=== PATIENT | female | born 1955 | race Caucasian/White ===

== ENCOUNTER 2018-03-13 11:29 | Inpatient (IN) | payer BC ==
--- NOTE | 2018-03-13 11:46 | PDOC ---
Attending Attestation - Resident Resident Name: Laura Bergeron - ED Attending Attestation I have performed the following: I have examined & evaluated the patient, The case was reviewed & discussed with the resident, I agree w/resident's findings & plan, Exceptions are as noted - HPI HPI: 62 yo F history migraines and depression present with 5 days of lower abd pain. She states it is associated with urinary urgency, stress incontinence, discomfort. Denies loss of appetite, fever, diarrhea, vomiting, back pain. She developed sweating on arrival in ED. - Physicial Exam PE: GENERAL: Awake, alert, and fully oriented, in no acute distress HEAD: No signs of trauma EYES: PERRLA, EOMI, sclera anicteric, conjunctiva clear ENT: Auricles normal inspection, hearing grossly normal, nares patent, oropharynx clear without exudates. Moist mucosa NECK: Normal ROM, supple, no lymphadenopathy, JVD, or masses LUNGS: Breath sounds equal, clear to auscultation bilaterally. No wheezes, and no crackles HEART: Regular rate and rhythm, normal S1 and S2, no murmurs, rubs or gallops ABDOMEN: Soft, nontender, normoactive bowel sounds. No guarding, no rebound. No masses. No CVAT. EXTREMITIES: Normal range of motion, no edema. No clubbing or cyanosis. No cords, erythema, or tenderness NEUROLOGICAL: Cranial nerves II through XII grossly intact. Normal speech, normal gait SKIN: Warm, normal turgor, no rashes or lesions noted. +Diaphoresis. - Medical Decision Making Will send UA, as UTI is most likely explanation for her symptoms. No signs of pyelo. If UA negative, may require further workup for abd pain.
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
[2018-03-13 13:23] LABS: URINE APPEARANCE Clear; URINE BILIRUBIN Negative (NEGATIVE); URINE COLOR Amber; URINE GLUCOSE (UA) Negative (NEGATIVE); URINE KETONE Negative (NEGATIVE); URINE LEUK ESTERASE TRACE (NEGATIVE); URINE NITRITE Negative (NEGATIVE); URINE PROTEIN Negative (NEGATIVE); URINE UROBILINOGEN 0.2 (0.2-1.0)
[2018-03-13 13:37] LABS: EPI CELLS FEW /HPF; URINE BACTERIA FEW /hpf (NEGATIVE); URINE RBC 0-2 /hpf (0-3)
[2018-03-13 14:15] LABS: BASO % 0.7 % (0-2.0); HEMATOCRIT 38.8 % (32.4-45.2); HEMOGLOBIN 13.2 GM/dl (10.7-15.3); LYMPH % 16.8 % (8-40); MCH 29.8 pg (25.7-33.7); MEAN CELL VOLUME 87.6 fl (80-96); MEAN PLT VOLUME 9.6 fl (7.5-11.1); MONO % 8.6 % (3.8-10.2); NEUT % 72.9 % (42.8-82.8); PLATELET COUNT 153 K/MM3 (134-434); RBC 4.42 M/mm3 (3.60-5.2); RDW 12.6 % (11.6-15.6); WHITE BLOOD COUNT 6.2 K/mm3 (4.0-10.8)
[2018-03-13 14:24] LABS: ALK PHOS 62 U/L (32-92); ANION GAP 9 (8-16); BILIRUBIN,TOTAL 1.1 mg/dl (0.2-1.0); BLOOD UREA NITROGEN 10 mg/dl (7-18); CALCIUM 8.8 mg/dl (8.4-10.2); CHLORIDE 101 mmol/L (98-107); CO2 27 mmol/L (22-28); CREATININE 0.6 mg/dl (0.6-1.3); GLUCOSE,RANDOM 95 mg/dl (74-106); POTASSIUM 3.5 mmol/L (3.5-5.1); SGOT/AST 17 U/L (10-42); SGPT/ALT 16 U/L (10-40); SODIUM 137 mmol/L (136-145); TOT PROT 6.8 g/dl (6.4-8.3)
[2018-03-13] MEDS ORDERED: ACETAMINOPHEN 1000 MG/100 ML VIAL (NON FORMULARY) IVPB ONE (18:13)
[2018-03-13] MEDS ORDERED: clonazePAM 0.5 MG TABLET PO ONE (18:13)
[2018-03-13] MEDS ORDERED: clonazePAM 0.5 MG TABLET ONE (18:19)
[2018-03-13] MEDS ORDERED: ACETAMINOPHEN INJECTION 100 ML IVPB ONE (18:19)
[2018-03-13 18:56] LABS: ACTIVATED PTT 30.1 SECONDS (25.2-36.5)
[2018-03-13] MEDS: LACTATED RINGERS SOLUTION 1,000 ML/1,000 ML INFUS.BAG IV SCH ×2 (18:58→23:15)
[2018-03-13 19:00] LABS: INR 1.24 (0.82-1.09); PROTHROMBIN TIME (PATIENT) 13.8 SEC (10.2-13.0)
[2018-03-13] MEDS ORDERED: clonazePAM 0.5 MG TABLET PO SCH (22:00)
--- NOTE | 2018-03-13 22:39 | HP ---
Admitting History and Physical - Admission Chief Complaint: RLQ pain History Source: Patient Limitations to Obtaining History: No Limitations - Past Medical History [employer]: Yes: Migraine (basilar) Gastrointestinal: Yes: Other (morbid obesity s/p lap gastric bypass (eliminated HTN, DM)) Reproductive: Yes: Postmenopausal Psych: Yes: Anxiety, Depression, Other (agoraphobia) - Past Surgical History Past Surgical History: Yes: Bariatric Surgery (laparoscopic gastric bypass 2008 [facility]), Cholecystectomy (complicated by ductal injury and second surgery), Hysterectomy, Oopherectomy (bilat) Additional Past Surgical History: left shoulder rotator cuff - Smoking History Smoking history: Never smoked Have you smoked in the past 12 months: No - Alcohol/Substance Use Hx Alcohol Use: No History of Substance Use: reports: None - Social History ADL: Independent Home Medications - Allergies Allergies/Adverse Reactions: Allergies Allergy/AdvReac Type Severity Reaction Status Date / Time prochlorperazine edisylate Allergy Intermediate DIZZINESS Verified 03/13/18 11: 30 [From Compazine] prochlorperazine maleate Allergy Intermediate DIZZINESS Verified 03/13/18 11:30 [From Compazine] amoxicillin Allergy Verified 03/13/18 11:30 DUST Allergy Unknown Uncoded 03/13/18 11:30 HAYFEVER Allergy Unknown Uncoded 03/13/18 11:30 HAZELNUT Allergy Unknown Uncoded 03/13/18 11:30 - Home Medications Home Medications: Ambulatory Orders Clonazepam [Klonopin] 0.5 mg PO HS 05/09/14 Paroxetine HCl [Paxil] 20 mg PO TID 05/09/14 Trazodone HCl 50 mg PO HS 03/13/18 Family Disease History - Family Disease History Family History: Unremarkable (noncontributory) Review of Systems - Review of Systems Constitutional: reports: Loss of Appetite (earlier in week). denies: Chills, Fever Eyes: denies: Recent Change in Vision, Other HENT: denies: Difficult Swallowing, Nasal Congestion, Throat Pain Neck: denies: Swollen Glands, Tenderness Cardiovascular: denies: Chest Pain, Palpitations Respiratory: denies: Cough, SOB Gastrointestinal: reports: Abdominal Pain (with hpi). denies: Constipation, Diarrhea, Nausea, Vomiting Genitourinary: reports: Incontinence, Urgency. denies: Burning, Dysuria, Frequency Musculoskeletal: denies: Back Pain, Joint Pain, Muscle Pain Integumentary: denies: Change in Color, Rash Neurological: reports: Headache. denies: Dizziness, Unsteady Gait Psychiatric: reports: Anxiety, Depression Physical Examination Vital Signs: Vital Signs Temperature 99.0 F 03/13/18 18:34 Pulse Rate 78 03/13/18 18:34 Respiratory Rate 17 03/13/18 11:30 Blood Pressure 130/57 03/13/18 18:34 O2 Sat by Pulse Oximetry (%) 99 03/13/18 18:34 Constitutional: Yes: No Distress, Calm, Obese Eyes: Yes: Conjunctiva Clear, EOM Intact HENT: Yes: Atraumatic, Normocephalic Neck: Yes: Supple, Trachea Midline Cardiovascular: Yes: Regular Rate and Rhythm, Murmur Respiratory: Yes: Regular, CTA Bilaterally Gastrointestinal: Yes: Soft, Abdomen, Obese, Hypoactive Bowel Sounds, Tenderness (RUQ with referred tend from LLQ, focal rebound, no guarding), Tenderness, Rebound (local RLQ only), Other (multiple healed scars - laparoscopic and RUQ). No: Tenderness, Epigastrium ...Rectal Exam: Yes: Deferred Renal/: No: CVA Tenderness - Left, CVA Tenderness - Right Musculoskeletal: No: Joint Stiffness, Joint Swelling Extremities: No: Cool, Cyanosis Edema: No Peripheral Pulses WNL: Yes Integumentary: No: Jaundice, Rash Neurological: Yes: Alert, Oriented Psychiatric: Yes: Alert (mildly anxious), Oriented Labs: CBC, BMP 03/13/18 14:02 03/13/18 14:02 INR, PTT INR 1.24 (0.82-1.09) H 03/13/18 17:46 Urine Test Results Urine Color Rhina 03/13/18 12:21 Urine Appearance Clear 03/13/18 12:21 Urine pH 6.0 (4.5-8) 03/13/18 12:21 Ur Specific [place] <= 1.005 (1.005-1.025) 03/13/18 12:21 Urine Protein Negative (NEGATIVE) 03/13/18 12:21 Urine Glucose (UA) Negative (NEGATIVE) 03/13/18 12:21 Urine Ketones Negative (NEGATIVE) 03/13/18 12:21 Urine Blood Negative (NEGATIVE) 08/04/18 12:21 Urine Nitrite Negative (NEGATIVE) 03/13/18 12:21 Urine Bilirubin Negative (NEGATIVE) 03/13/18 12:21 Ur Leukocyte Esterase Trace (NEGATIVE) H 03/13/18 12:21 Urine RBC 0-2 /hpf (0-3) 03/13/18 12:21 Urine WBC 1-3 (0-5) 03/13/18 12:21 Ur Epithelial Cells Few /HPF 03/13/18 12:21 Urine Bacteria Few /hpf (NEGATIVE) 03/13/18 12:21 Imaging - Results Cat Scan: Report Reviewed, Image Reviewed (images personally reviewed - ruptured appendicitis with local phlegmon, no organized abscess, no extraluminal air, no obstruction; s/p gastric bypass, s/p cholecystectomy and hyst/BSO) Problem List - Problems (1) Ruptured appendicitis Assessment/Plan: 5 day hx of symptoms prior to ER presentation admit to surgery will pursue nonop tx/bowel rest/antibiotics initially NPO/IVF consult ID for abx - Meropenem tonight pain meds prn, nonnarcotics first line encourage OOB/amb/IS DVT prophylaxis trend labs serial exams consider repeat CT pending clinical course to eval for drainable collection in few days discussed with patient risk of failure of nonoperative treatment and potential need for laparoscopic possible open appendectomy given previous surgical history and morbid obesity s/p bypass, would like to avoid immediate operation if possible she may decide to return to bariatric center for interval appendectomy if this episode resolves without emergent surgery ok for home meds only Code(s): K35.2 - ACUTE APPENDICITIS WITH GENERALIZED PERITONITIS (2) Morbid obesity with BMI of 40.0-44.9, adult Code(s): E66.01 - MORBID (SEVERE) OBESITY DUE TO EXCESS CALORIES; Z68.41 - BODY MASS INDEX (BMI) 40.0-44.9, ADULT (3) S/P gastric bypass Code(s): Z98.84 - BARIATRIC SURGERY STATUS (4) Basilar migraine Code(s): G43.109 - MIGRAINE WITH AURA, NOT INTRACTABLE, W/O STATUS MIGRAINOSUS (5) Anxiety and depression Assessment/Plan: continue home meds Code(s): F41.9 - ANXIETY DISORDER, UNSPECIFIED; F32.9 - MAJOR DEPRESSIVE DISORDER, SINGLE EPISODE, UNSPECIFIED
[2018-03-13] MEDS ORDERED: clonazePAM 0.5 MG TABLET PO PRN (22:45)
[2018-03-13] MEDS: clonazePAM 0.5 MG TABLET PO SCH (23:16)
[2018-03-13] MEDS: PARoxetine HCL 10 MG TABLET (FP) PO SCH (23:17)
[2018-03-13] MEDS: traZODone HCL 50 MG TABLET (FP) PO SCH (23:17)
[2018-03-14 00:03] VITALS: BMI 40.4
[2018-03-14] MEDS: MEROPENEM 1 GM in DEXTROSE 5%-WATER 100 ML IVPB SCH ×2 (01:56→09:33)
[2018-03-14] MEDS: ACETAMINOPHEN 1000 MG/100 ML VIAL (NON FORMULARY) IVPB PRN ×2 (04:16→15:17)
[2018-03-14] MEDS: PARoxetine HCL 10 MG TABLET (FP) PO SCH ×4 (05:31→18:35)
[2018-03-14 07:55] LABS: BASO % 0.5 % (0-2.0); EOS % 1.5 % (0-4.5); HEMATOCRIT 34.8 % (32.4-45.2); HEMOGLOBIN 11.7 GM/dL (10.7-15.3); LYMPH % 15.5 % (8-40); MCH 29.3 pg (25.7-33.7); MCHC 33.8 g/dl (32.0-36.0); MEAN CELL VOLUME 86.9 fl (80-96); MEAN PLT VOLUME 9.7 fl (7.5-11.1); MONO % 9.3 % (3.8-10.2); NEUT % 73.2 % (42.8-82.8); PLATELET COUNT 113 K/MM3 (134-434); RDW 13.3 % (11.6-15.6)
[2018-03-14 08:33] LABS: ANION GAP 9 (8-16); BLOOD UREA NITROGEN 6 mg/dL (7-18); CALCIUM 8.4 mg/dL (8.5-10.1); CHLORIDE 107 mmol/L (98-107); CO2 27 mmol/L (21-32); GLUCOSE,RANDOM 87 mg/dL (74-106); MAGNESIUM 2.1 mg/dL (1.8-2.4); POTASSIUM 3.6 mmol/L (3.5-5.1); SODIUM 143 mmol/L (136-145)
[2018-03-14 08:34] LABS: CREATININE 0.5 mg/dL (0.55-1.02)
--- NOTE | 2018-03-14 08:54 | EKG ---
Test Reason : Blood Pressure : / mmHG Vent. Rate : 063 BPM Atrial Rate : 063 BPM P-R Int : 178 ms QRS Dur : 096 ms QT Int : 410 ms P-R-T Axes : 045 -10 006 degrees QTc Int : 419 ms NORMAL SINUS RHYTHM POSSIBLE LEFT ATRIAL ENLARGEMENT BORDERLINE ECG NO PREVIOUS ECGS AVAILABLE Confirmed by YASSINE ZAVALA, REJI ([id number]) on 03/14/2018 8:54:25 AM Referred By: BAY MCINTOSH Confirmed By:REJI METZGER MD
[2018-03-14] MEDS: ENOXAPARIN NA (PORCINE) 40 MG/0.4 ML DISP.SYRIN SQ SCH (09:33)
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
[2018-03-14] MEDS: IBUPROFEN 800 MG/8 ML IJ IVPB PRN (12:07)
[2018-03-14] MEDS: D5-1/2NS+20 MEQ KCL - 20 MEQ/1,000 ML INFUS.BAG IV SCH (13:22)
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
[2018-03-15] MEDS: clonazePAM 0.5 MG TABLET PO SCH ×2 (00:02→23:15)
[2018-03-15] MEDS: traZODone HCL 50 MG TABLET (FP) PO SCH ×2 (00:02→23:15)
[2018-03-15] MEDS: D5-1/2NS+20 MEQ KCL - 20 MEQ/1,000 ML INFUS.BAG IV SCH ×2 (00:19→12:36)
[2018-03-15 07:34] LABS: BASO % 0.7 % (0-2.0); EOS % 3.3 % (0-4.5); HEMOGLOBIN 11.1 GM/dL (10.7-15.3); LYMPH % 19.8 % (8-40); MCH 29.2 pg (25.7-33.7); MCHC 33.7 g/dl (32.0-36.0); MEAN CELL VOLUME 86.7 fl (80-96); MEAN PLT VOLUME 9.8 fl (7.5-11.1); MONO % 11.3 % (3.8-10.2); NEUT % 64.9 % (42.8-82.8); PLATELET COUNT 101 K/MM3 (134-434); RDW 12.9 % (11.6-15.6); WHITE BLOOD COUNT 2.8 K/mm3 (4.0-10.0)
[2018-03-15 08:23] LABS: ANION GAP 6 (8-16); BLOOD UREA NITROGEN 6 mg/dL (7-18); CALCIUM 8.1 mg/dL (8.5-10.1); CHLORIDE 110 mmol/L (98-107); CO2 29 mmol/L (21-32); CREATININE 0.5 mg/dL (0.55-1.02); GLUCOSE,RANDOM 102 mg/dL (74-106); MAGNESIUM 2.1 mg/dL (1.8-2.4); POTASSIUM 3.8 mmol/L (3.5-5.1); SODIUM 145 mmol/L (136-145)
[2018-03-15] MEDS: PARoxetine HCL 10 MG TABLET (FP) PO SCH ×3 (09:13→17:08)
[2018-03-15] MEDS: ENOXAPARIN NA (PORCINE) 40 MG/0.4 ML DISP.SYRIN SQ SCH (09:13)
--- NOTE | 2018-03-15 11:36 | PN ---
Progress Note, Physician Chief Complaint: RLQ pain History of Present Illness: Pt seen and examined in bed. Ambulating in halls. RLQ pain continues to decrease , not using pain meds. Voiding very well. Passing gas, no BM yet. No fevers. Overall feeling better. Changed rooms - had good night's sleep. - Current Medication List Current Medications: Active Medications Acetaminophen (Ofirmev Injection -) 1,000 mg IVPB Q6H PRN PRN Reason: PAIN LEVEL 4 - 6 Last Admin: 03/14/18 15:17 Dose: 1,000 mg Clonazepam (Klonopin -) 0.25 mg PO DAILY PRN PRN Reason: ANXIETY Clonazepam (Klonopin -) 0.5 mg PO [facility] Last Admin: 03/15/18 00:02 Dose: 0.5 mg Enoxaparin Sodium (Lovenox -) 40 mg SQ DAILY [facility] Last Admin: 03/15/18 09:13 Dose: 40 mg Levofloxacin (Levaquin 750 Mg Premixed Ivpb -) 750 mg in 150 mls @ 100 mls/hr IVPB DAILY@1800 [facility]; Protocol Last Admin: 03/14/18 18:17 Dose: 100 mls/hr Potassium Chloride/Dextrose/Sod Cl (D5-1/2ns+20 Meq Kcl -) 20 meq in 1,000 mls @ 125 mls/hr IV ASDIR [facility] Last Admin: 03/15/18 00:19 Dose: 125 mls/hr Metronidazole (Flagyl 500mg Premixed Ivpb -) 500 mg in 100 mls @ 100 mls/hr IVPB Q8H-IV [facility] Last Admin: 03/15/18 09:13 Dose: 100 mls/hr Ibuprofen (Caldolor Injection -) 800 mg IVPB Q8H PRN PRN Reason: PAIN LEVEL 7 - 10 Last Admin: 03/14/18 12:07 Dose: 800 mg Paroxetine HCl (Paxil -) 20 mg PO TID@0900,1300,1700 [facility] Last Admin: 03/15/18 09:13 Dose: 20 mg Trazodone HCl (Desyrel -) 50 mg PO [facility] Last Admin: 03/15/18 00:02 Dose: 50 mg - Objective Vital Signs: Vital Signs Temperature 98.6 F 03/15/18 04:00 Pulse Rate 69 03/15/18 04:00 Respiratory Rate 20 08/06/18 04:00 Blood Pressure 115/62 03/15/18 04:00 O2 Sat by Pulse Oximetry (%) 96 03/14/18 21:00 Constitutional: Yes: No Distress, Calm, Obese Eyes: Yes: Conjunctiva Clear, EOM Intact HENT: Yes: Atraumatic, Normocephalic Cardiovascular: Yes: Regular Rate and Rhythm, Murmur Respiratory: Yes: Regular, CTA Bilaterally Gastrointestinal: Yes: Normal Bowel Sounds, Soft, Abdomen, Obese, Tenderness ( only RLQ to deep palpation, no R/G, no referred tenderness). No: Tenderness, Rebound Extremities: No: Cool, Cyanosis Edema: No Integumentary: No: Jaundice, Rash Neurological: Yes: Alert, Oriented Labs: CBC, BMP 03/15/18 06:00 03/15/18 06:00 wbc low, but clinically improved not yet 48 hrs on antibiotics (will be tonight) Problem List - Problems (1) Ruptured appendicitis Assessment/Plan: pain and tenderness improving on antibiotics continue Levo/Flagyl per ID continue NPO/IVF - decrease fluids a little pain meds prn (tyl/ibu) encourage OOB/amb/IS trend labs, monitor wbc serial exams will continue nonoperative treatment Code(s): K35.2 - ACUTE APPENDICITIS WITH GENERALIZED PERITONITIS (2) Morbid obesity with BMI of 40.0-44.9, adult Code(s): E66.01 - MORBID (SEVERE) OBESITY DUE TO EXCESS CALORIES; Z68.41 - BODY MASS INDEX (BMI) 40.0-44.9, ADULT (3) S/P gastric bypass Code(s): Z98.84 - BARIATRIC SURGERY STATUS (4) Basilar migraine Code(s): G43.109 - MIGRAINE WITH AURA, NOT INTRACTABLE, W/O STATUS MIGRAINOSUS (5) Anxiety and depression Assessment/Plan: continue home meds Code(s): F41.9 - ANXIETY DISORDER, UNSPECIFIED; F32.9 - MAJOR DEPRESSIVE DISORDER, SINGLE EPISODE, UNSPECIFIED
--- NOTE | 2018-03-15 12:30 | PN ---
Progress Note, Physician History of Present Illness: patient stable doing well no complaints passing flatus - Current Medication List Current Medications: Active Medications Acetaminophen (Ofirmev Injection -) 1,000 mg IVPB Q6H PRN PRN Reason: PAIN LEVEL 4 - 6 Last Admin: 03/14/18 15:17 Dose: 1,000 mg Clonazepam (Klonopin -) 0.25 mg PO DAILY PRN PRN Reason: ANXIETY Clonazepam (Klonopin -) 0.5 mg PO [facility] Last Admin: 03/15/18 00:02 Dose: 0.5 mg Enoxaparin Sodium (Lovenox -) 40 mg SQ DAILY [facility] Last Admin: 03/15/18 09:13 Dose: 40 mg Levofloxacin (Levaquin 750 Mg Premixed Ivpb -) 750 mg in 150 mls @ 100 mls/hr IVPB DAILY@1800 [facility]; Protocol Last Admin: 03/14/18 18:17 Dose: 100 mls/hr Metronidazole (Flagyl 500mg Premixed Ivpb -) 500 mg in 100 mls @ 100 mls/hr IVPB Q8H-IV [facility] Last Admin: 03/15/18 09:13 Dose: 100 mls/hr Potassium Chloride/Dextrose/Sod Cl (D5-1/2ns+20 Meq Kcl -) 20 meq in 1,000 mls @ 100 mls/hr IV ASDIR [facility] Ibuprofen (Caldolor Injection -) 800 mg IVPB Q8H PRN PRN Reason: PAIN LEVEL 7 - 10 Last Admin: 03/14/18 12:07 Dose: 800 mg Paroxetine HCl (Paxil -) 20 mg PO TID@0900,1300,1700 [facility] Last Admin: 03/15/18 09:13 Dose: 20 mg Trazodone HCl (Desyrel -) 50 mg PO [facility] Last Admin: 03/15/18 00:02 Dose: 50 mg - Objective Vital Signs: Vital Signs Temperature 98.6 F 03/15/18 04:00 Pulse Rate 69 03/15/18 04:00 Respiratory Rate 20 03/15/18 04:00 Blood Pressure 115/62 03/15/18 04:00 O2 Sat by Pulse Oximetry (%) 96 03/14/18 21:00 Constitutional: Yes: No Distress, Calm, Obese Cardiovascular: Yes: Regular Rate and Rhythm Respiratory: Yes: Regular, CTA Bilaterally Gastrointestinal: Yes: Soft, Hypoactive Bowel Sounds Musculoskeletal: Yes: WNL Extremities: Yes: WNL Neurological: Yes: Alert, Oriented Psychiatric: Yes: Alert, Oriented Labs: CBC, BMP 03/15/18 06:00 03/15/18 06:00 INR, PTT INR 1.24 (0.82-1.09) H 03/13/18 17:46 - ....Imaging Cat Scan: Report Reviewed, Image Reviewed Assessment/Plan Problem List - Problems (1) Ruptured appendicitis Code(s): K35.2 - ACUTE APPENDICITIS WITH GENERALIZED PERITONITIS (2) Morbid obesity with BMI of 40.0-44.9, adult Code(s): E66.01 - MORBID (SEVERE) OBESITY DUE TO EXCESS CALORIES; Z68.41 - BODY MASS INDEX (BMI) 40.0-44.9, ADULT (3) S/P gastric bypass Code(s): Z98.84 - BARIATRIC SURGERY STATUS (4) Basilar migraine Code(s): G43.109 - MIGRAINE WITH AURA, NOT INTRACTABLE, W/O STATUS MIGRAINOSUS (5) Anxiety and depression Assessment/Plan: continue home meds Code(s): F41.9 - ANXIETY DISORDER, UNSPECIFIED; F32.9 - MAJOR DEPRESSIVE DISORDER, SINGLE EPISODE, UNSPECIFIED Assessment/Plan 61 y.o. female with PMH of obesity s/p gastric bypass, s/p cholecystecomy, s/p hysterectomy, migraine headaches, depression and recent tooth extraction presenting with Rt lower abdominal pain x 5 days Acute Appendicitis/rupture will continue current mgmt patient doing well remaining stable wbc on the lower side monitor wbc
[2018-03-15] MEDS ORDERED: diphenhydrAMINE HCL 25 MG CAPSULE (FP) PO ONE (19:00)
[2018-03-16] MEDS: D5-1/2NS+20 MEQ KCL - 20 MEQ/1,000 ML INFUS.BAG IV SCH (05:15)
[2018-03-16 08:03] LABS: BASO % 0.9 % (0-2.0); EOS % 4.1 % (0-4.5); HEMATOCRIT 35.1 % (32.4-45.2); HEMOGLOBIN 11.8 GM/dL (10.7-15.3); LYMPH % 26.1 % (8-40); MCH 29.3 pg (25.7-33.7); MCHC 33.5 g/dl (32.0-36.0); MEAN CELL VOLUME 87.6 fl (80-96); MEAN PLT VOLUME 9.8 fl (7.5-11.1); MONO % 9.8 % (3.8-10.2); NEUT % 59.1 % (42.8-82.8); PLATELET COUNT 116 K/MM3 (134-434); RBC 4.01 M/mm3 (3.60-5.2); RDW 13.1 % (11.6-15.6); WHITE BLOOD COUNT 2.9 K/mm3 (4.0-10.0)
[2018-03-16 08:15] LABS: CHLORIDE 110 mmol/L (98-107); POTASSIUM 3.9 mmol/L (3.5-5.1); SODIUM 146 mmol/L (136-145)
[2018-03-16 08:19] LABS: ANION GAP 9 (8-16); BLOOD UREA NITROGEN 5 mg/dL (7-18); CALCIUM 8.1 mg/dL (8.5-10.1); CO2 27 mmol/L (21-32); CREATININE 0.5 mg/dL (0.55-1.02); GLUCOSE,RANDOM 96 mg/dL (74-106); MAGNESIUM 2.2 mg/dL (1.8-2.4)
[2018-03-16] MEDS: PARoxetine HCL 10 MG TABLET (FP) PO SCH ×4 (10:11→17:30)
[2018-03-16] MEDS: ENOXAPARIN NA (PORCINE) 40 MG/0.4 ML DISP.SYRIN SQ SCH (10:11)
--- NOTE | 2018-03-16 12:44 | PN ---
Progress Note, Physician Chief Complaint: RLQ pain History of Present Illness: Pt seen and examined in bed. Ambulating in halls. No more RLQ pain, no headaches. Voiding and passing gas, had small liquidy BM. No fevers. Overall still feeling better, but also feeling somewhat more depressed, sad, occasionally panicky. Concerned about getting her Paxil at correct times. Last night's events noted - pt had hard, reddened area on right arm just above antecubital fossa and noted a couple of canker sores in her mouth. The right antecubital is where the ER IV was located originally; the redness and firmness is resolving somewhat. Had been itchy as well. Got benadryl last night. - Current Medication List Current Medications: Active Medications Acetaminophen (Ofirmev Injection -) 1,000 mg IVPB Q6H PRN PRN Reason: PAIN LEVEL 4 - 6 Last Admin: 03/14/18 15:17 Dose: 1,000 mg Clonazepam (Klonopin -) 0.25 mg PO DAILY PRN PRN Reason: ANXIETY Clonazepam (Klonopin -) 0.5 mg PO HS [facility] Last Admin: 03/15/18 23:15 Dose: 0.5 mg Enoxaparin Sodium (Lovenox -) 40 mg SQ DAILY [facility] Last Admin: 03/16/18 10:11 Dose: 40 mg Levofloxacin (Levaquin 750 Mg Premixed Ivpb -) 750 mg in 150 mls @ 100 mls/hr IVPB DAILY@1800 [facility]; Protocol Last Admin: 03/15/18 18:45 Dose: 100 mls/hr Metronidazole (Flagyl 500mg Premixed Ivpb -) 500 mg in 100 mls @ 100 mls/hr IVPB Q8H-IV [facility] Last Admin: 03/16/18 10:12 Dose: 100 mls/hr Potassium Chloride/Dextrose/Sod Cl (D5-1/2ns+20 Meq Kcl -) 20 meq in 1,000 mls @ 100 mls/hr IV [facility] Last Admin: 03/16/18 05:15 Dose: 100 mls/hr Ibuprofen (Caldolor Injection -) 800 mg IVPB Q8H PRN PRN Reason: PAIN LEVEL 7 - 10 Last Admin: 03/14/18 12:07 Dose: 800 mg Paroxetine HCl (Paxil -) 20 mg PO TID@0900,1300,1700 [facility] Last Admin: 03/16/18 10:11 Dose: 20 mg Trazodone HCl (Desyrel -) 50 mg PO HS [facility] Last Admin: 03/15/18 23:15 Dose: 50 mg - Objective Vital Signs: Vital Signs Temperature 98.1 F 03/16/18 10:00 Pulse Rate 63 03/16/18 10:00 Respiratory Rate 18 03/16/18 10:00 Blood Pressure 96/65 03/16/18 10:00 O2 Sat by Pulse Oximetry (%) 95 03/15/18 21:00 Constitutional: Yes: No Distress, Calm, Obese Eyes: Yes: Conjunctiva Clear, EOM Intact HENT: Yes: Atraumatic, Normocephalic Cardiovascular: Yes: Regular Rate and Rhythm, Murmur Respiratory: Yes: Regular, CTA Bilaterally Gastrointestinal: Yes: Normal Bowel Sounds (normal to slightly decreased), Soft , Abdomen, Obese. No: Tenderness (minimal RLQ tenderness to deep palpation only ), Tenderness, Epigastrium, Tenderness, Rebound Genitourinary: No: CVA Tenderness - Left, CVA Tenderness - Right Musculoskeletal: No: Joint Stiffness, Joint Swelling Extremities: Yes: Erythema (small pink area above R antecub, minimally firm, mostly soft, not swollen now; antecubital fossa with reddened area medially, possibly from adhesive over previous IV site; neither site tender), Other ( scattered ecchymoses on arms from IV sticks). No: Cool, Cyanosis Edema: No Integumentary: Yes: Bruising (few on arms), Erythema (see above). No: Jaundice , Rash Neurological: Yes: Alert, Oriented Psychiatric: Yes: Alert, Oriented, Other (somewhat flat affect but appropriately responsive). No: Agitated, Suicidal Ideation Labs: CBC, BMP 03/16/18 06:00 03/16/18 06:00 Mg normal wbc stable, up from 2.8 K ok at 3.9 Problem List - Problems (1) Ruptured appendicitis Assessment/Plan: pain and tenderness improving on antibiotics, both nearly resolved continue Levo/Flagyl per ID - anticipate transition to oral on d/c to complete 14d course pain meds prn (tyl/ibu) encourage OOB/amb/IS trend labs, monitor wbc serial exams will continue nonoperative treatment start clear liquids Code(s): K35.2 - ACUTE APPENDICITIS WITH GENERALIZED PERITONITIS (2) Morbid obesity with BMI of 40.0-44.9, adult Code(s): E66.01 - MORBID (SEVERE) OBESITY DUE TO EXCESS CALORIES; Z68.41 - BODY MASS INDEX (BMI) 40.0-44.9, ADULT (3) S/P gastric bypass Code(s): Z98.84 - BARIATRIC SURGERY STATUS (4) Basilar migraine Code(s): G43.109 - MIGRAINE WITH AURA, NOT INTRACTABLE, W/O STATUS MIGRAINOSUS (5) Anxiety and depression Assessment/Plan: continue home meds discussed with nursing to try to give on time for Code(s): F41.9 - ANXIETY DISORDER, UNSPECIFIED; F32.9 - MAJOR DEPRESSIVE DISORDER, SINGLE EPISODE, UNSPECIFIED (6) Recurrent canker sores Assessment/Plan: pt states she has used Valtrex at home previously for same will order 500mg bid Code(s): K12.0 - RECURRENT ORAL APHTHAE (7) Phlebitis following infusion Assessment/Plan: most likely mild phlebitis and/or infiltration at previous IV site already resolving warm compresses prn monitor site Code(s): T80.1XXA - VASCULAR COMP FOL INFUSN, TRANFS AND THERAPUTC INJECT, INIT Qualifiers: Encounter type: initial encounter Qualified Code(s): T80.1XXA - Vascular complications following infusion, transfusion and therapeutic injection, initial encounter
[2018-03-16] MEDS ORDERED: D5-1/2NS+20 MEQ KCL - 20 MEQ/1,000 ML INFUS.BAG IV SCH (12:56)
--- NOTE | 2018-03-16 14:13 | PN ---
Progress Note, Physician History of Present Illness: patient stable doing well no complaints passing flatus - Current Medication List Current Medications: Active Medications Acetaminophen (Ofirmev Injection -) 1,000 mg IVPB Q6H PRN PRN Reason: PAIN LEVEL 4 - 6 Last Admin: 03/14/18 15:17 Dose: 1,000 mg Clonazepam (Klonopin -) 0.25 mg PO DAILY PRN PRN Reason: ANXIETY Clonazepam (Klonopin -) 0.5 mg PO [facility] Last Admin: 03/15/18 23:15 Dose: 0.5 mg Enoxaparin Sodium (Lovenox -) 40 mg SQ DAILY [facility] Last Admin: 03/16/18 10:11 Dose: 40 mg Levofloxacin (Levaquin 750 Mg Premixed Ivpb -) 750 mg in 150 mls @ 100 mls/hr IVPB DAILY@1800 [facility]; Protocol Last Admin: 03/15/18 18:45 Dose: 100 mls/hr Metronidazole (Flagyl 500mg Premixed Ivpb -) 500 mg in 100 mls @ 100 mls/hr IVPB Q8H-IV [facility] Last Admin: 03/16/18 10:12 Dose: 100 mls/hr Potassium Chloride/Dextrose/Sod Cl (D5-1/2ns+20 Meq Kcl -) 20 meq in 1,000 mls @ 75 mls/hr IV ASDIR [facility] Ibuprofen (Caldolor Injection -) 800 mg IVPB Q8H PRN PRN Reason: PAIN LEVEL 7 - 10 Last Admin: 03/14/18 12:07 Dose: 800 mg Paroxetine HCl (Paxil -) 20 mg PO TID@0900,1300,1700 [facility] Trazodone HCl (Desyrel -) 50 mg PO [facility] Last Admin: 03/15/18 23:15 Dose: 50 mg Valacyclovir HCl (Valtrex -) 500 mg PO BID [facility] - Objective Vital Signs: Vital Signs Temperature 98.6 F 03/16/18 13:57 Pulse Rate 68 03/16/18 13:57 Respiratory Rate 18 03/16/18 13:57 Blood Pressure 113/65 03/16/18 13:57 O2 Sat by Pulse Oximetry (%) 96 03/16/18 09:00 Constitutional: Yes: No Distress, Calm, Obese Cardiovascular: Yes: Regular Rate and Rhythm Respiratory: Yes: Regular, CTA Bilaterally Gastrointestinal: Yes: Normal Bowel Sounds, Soft Musculoskeletal: Yes: WNL Extremities: Yes: WNL Neurological: Yes: Alert, Oriented Psychiatric: Yes: Alert, Oriented Labs: CBC, BMP 03/16/18 06:00 03/16/18 06:00 INR, PTT INR 1.24 (0.82-1.09) H 03/13/18 17:46 Assessment/Plan Problem List - Problems (1) Ruptured appendicitis Code(s): K35.2 - ACUTE APPENDICITIS WITH GENERALIZED PERITONITIS (2) Morbid obesity with BMI of 40.0-44.9, adult Code(s): E66.01 - MORBID (SEVERE) OBESITY DUE TO EXCESS CALORIES; Z68.41 - BODY MASS INDEX (BMI) 40.0-44.9, ADULT (3) S/P gastric bypass Code(s): Z98.84 - BARIATRIC SURGERY STATUS (4) Basilar migraine Code(s): G43.109 - MIGRAINE WITH AURA, NOT INTRACTABLE, W/O STATUS MIGRAINOSUS (5) Anxiety and depression Assessment/Plan: continue home meds Code(s): F41.9 - ANXIETY DISORDER, UNSPECIFIED; F32.9 - MAJOR DEPRESSIVE DISORDER, SINGLE EPISODE, UNSPECIFIED Assessment/Plan 61 y.o. female with PMH of obesity s/p gastric bypass, s/p cholecystecomy, s/p hysterectomy, migraine headaches, depression and recent tooth extraction presenting with Rt lower abdominal pain x 5 days Acute Appendicitis/rupture will continue current mgmt patient doing well remaining stable wbc on the lower side monitor wbc
[2018-03-16] MEDS: valACYclovir HCL 500 MG TABLET (FP) PO SCH ×2 (14:31→22:47)
[2018-03-16] MEDS: NYSTATIN 500,000 UNITS/5 ML SUSPENSION PO SCH ×3 (17:30→23:08)
[2018-03-16] MEDS: LACTOBACILLUS ACIDOPHILUS 1 TABLET PO SCH (17:31)
[2018-03-16] MEDS: traZODone HCL 50 MG TABLET (FP) PO SCH (22:46)
[2018-03-16] MEDS: clonazePAM 0.5 MG TABLET PO SCH (22:47)
[2018-03-17] MEDS: IBUPROFEN 800 MG/8 ML IJ IVPB PRN (02:53)
[2018-03-17] MEDS: D5-1/2NS+20 MEQ KCL - 20 MEQ/1,000 ML INFUS.BAG IV SCH (05:00)
[2018-03-17] MEDS: NYSTATIN 500,000 UNITS/5 ML SUSPENSION PO SCH ×3 (05:24→18:03)
[2018-03-17 07:27] LABS: BASO % 1.1 % (0-2.0); HEMATOCRIT 35.9 % (32.4-45.2); LYMPH % 30.5 % (8-40); MCH 29.1 pg (25.7-33.7); MCHC 33.5 g/dl (32.0-36.0); MEAN CELL VOLUME 86.8 fl (80-96); MEAN PLT VOLUME 9.2 fl (7.5-11.1); MONO % 8.6 % (3.8-10.2); NEUT % 55.8 % (42.8-82.8); PLATELET COUNT 131 K/MM3 (134-434); RBC 4.14 M/mm3 (3.60-5.2); RDW 12.9 % (11.6-15.6); WHITE BLOOD COUNT 2.7 K/mm3 (4.0-10.0)
[2018-03-17 08:40] LABS: CHLORIDE 106 mmol/L (98-107); POTASSIUM 3.6 mmol/L (3.5-5.1); SODIUM 141 mmol/L (136-145)
[2018-03-17 09:27] LABS: ANION GAP 5 (8-16); BLOOD UREA NITROGEN 4 mg/dL (7-18); CALCIUM 8.5 mg/dL (8.5-10.1); CO2 30 mmol/L (21-32); CREATININE 0.6 mg/dL (0.55-1.02); GLUCOSE,RANDOM 91 mg/dL (74-106); MAGNESIUM 2.1 mg/dL (1.8-2.4)
[2018-03-17] MEDS: valACYclovir HCL 500 MG TABLET (FP) PO SCH ×2 (09:39→22:12)
[2018-03-17] MEDS: PARoxetine HCL 10 MG TABLET (FP) PO SCH ×3 (09:39→16:30)
[2018-03-17] MEDS: ENOXAPARIN NA (PORCINE) 40 MG/0.4 ML DISP.SYRIN SQ SCH (09:39)
[2018-03-17] MEDS: LACTOBACILLUS ACIDOPHILUS 1 TABLET PO SCH (09:39)
--- NOTE | 2018-03-17 13:07 | PN ---
Progress Note, Physician Chief Complaint: RLQ pain History of Present Illness: Pt seen and examined in bed. Ambulating in halls. No more RLQ pain, no headaches. Voiding and with bowel function. No fevers. Overall feeling better, tolerating clears. - Current Medication List Current Medications: Active Medications Acetaminophen (Ofirmev Injection -) 1,000 mg IVPB Q6H PRN PRN Reason: PAIN LEVEL 4 - 6 Last Admin: 03/14/18 15:17 Dose: 1,000 mg Clonazepam (Klonopin -) 0.25 mg PO DAILY PRN PRN Reason: ANXIETY Clonazepam (Klonopin -) 0.5 mg PO [facility] Last Admin: 03/16/18 22:47 Dose: 0.5 mg Enoxaparin Sodium (Lovenox -) 40 mg SQ DAILY [facility] Last Admin: 03/17/18 09:39 Dose: 40 mg Levofloxacin (Levaquin 750 Mg Premixed Ivpb -) 750 mg in 150 mls @ 100 mls/hr IVPB DAILY@1800 [facility]; Protocol Last Admin: 03/16/18 19:03 Dose: 100 mls/hr Metronidazole (Flagyl 500mg Premixed Ivpb -) 500 mg in 100 mls @ 100 mls/hr IVPB Q8H-IV [facility] Last Admin: 03/17/18 09:40 Dose: 100 mls/hr Ibuprofen (Caldolor Injection -) 800 mg IVPB Q8H PRN PRN Reason: PAIN LEVEL 7 - 10 Last Admin: 03/17/18 02:53 Dose: 800 mg Lactobacillus Acidophilus (Bacid -) 1 tab PO DAILY [facility] Last Admin: 03/17/18 09:39 Dose: 1 tab Nystatin (Nystatin Oral Suspension -) 500,000 units PO Q6HPO [facility] Last Admin: 03/17/18 11:36 Dose: 500,000 units Paroxetine HCl (Paxil -) 20 mg PO TID@0900,1300,1700 [facility] Last Admin: 03/17/18 09:39 Dose: 20 mg Trazodone HCl (Desyrel -) 50 mg PO [facility] Last Admin: 03/16/18 22:46 Dose: 50 mg Valacyclovir HCl (Valtrex -) 500 mg PO BID [facility] Last Admin: 03/17/18 09:39 Dose: 500 mg - Objective Vital Signs: Vital Signs Temperature 97.9 F 03/17/18 10:00 Pulse Rate 55 L 03/17/18 10:00 Respiratory Rate 18 03/17/18 10:00 Blood Pressure 123/68 03/17/18 10:00 O2 Sat by Pulse Oximetry (%) 97 03/16/18 21:00 Constitutional: Yes: No Distress, Calm, Obese Eyes: Yes: Conjunctiva Clear, EOM Intact HENT: Yes: Atraumatic, Normocephalic Cardiovascular: Yes: Regular Rate and Rhythm, Murmur Respiratory: Yes: Regular, CTA Bilaterally (few coarse sounds clear with cough on left) Gastrointestinal: Yes: Normal Bowel Sounds, Soft, Abdomen, Obese. No: Tenderness, Tenderness, Epigastrium Extremities: Yes: Erythema (fading on right arm). No: Cool, Cyanosis Integumentary: Yes: Bruising (scattered on arms). No: Jaundice, Rash Neurological: Yes: Alert, Oriented Labs: CBC, BMP 03/17/18 06:30 03/17/18 06:30 wbc still low - ....Imaging Cat Scan: Pending Problem List - Problems (1) Ruptured appendicitis Assessment/Plan: pain and tenderness improved on antibiotics, both currently resolved continue Levo/Flagyl per ID - anticipate transition to oral on d/c to complete 14d course pain meds prn (tyl/ibu) encourage OOB/amb/IS trend labs, monitor wbc serial exams tolerating clear liquids will continue nonoperative treatment will recheck CT scan today to make sure no drainable collection - unclear why WBC still so low if no collection and inflammation improved, will advance diet and plan d/c home soon discussed with Dr. Winn Code(s): K35.2 - ACUTE APPENDICITIS WITH GENERALIZED PERITONITIS (2) Morbid obesity with BMI of 40.0-44.9, adult Code(s): E66.01 - MORBID (SEVERE) OBESITY DUE TO EXCESS CALORIES; Z68.41 - BODY MASS INDEX (BMI) 40.0-44.9, ADULT (3) S/P gastric bypass Code(s): Z98.84 - BARIATRIC SURGERY STATUS (4) Basilar migraine Code(s): G43.109 - MIGRAINE WITH AURA, NOT INTRACTABLE, W/O STATUS MIGRAINOSUS (5) Anxiety and depression Assessment/Plan: continue home meds Code(s): F41.9 - ANXIETY DISORDER, UNSPECIFIED; F32.9 - MAJOR DEPRESSIVE DISORDER, SINGLE EPISODE, UNSPECIFIED (6) Recurrent canker sores Assessment/Plan: on Valtrex Code(s): K12.0 - RECURRENT ORAL APHTHAE (7) Phlebitis following infusion Assessment/Plan: most likely mild phlebitis and/or infiltration at previous IV site resolving slowly warm compresses prn monitor site Code(s): T80.1XXA - VASCULAR COMP FOL INFUSN, TRANFS AND THERAPUTC INJECT, INIT Qualifiers: Encounter type: initial encounter Qualified Code(s): T80.1XXA - Vascular complications following infusion, transfusion and therapeutic injection, initial encounter
--- NOTE | 2018-03-17 13:18 | PN ---
Progress Note, Physician History of Present Illness: patient stable no issues repeat ct scan done today awaiting for reports - Current Medication List Current Medications: Active Medications Acetaminophen (Ofirmev Injection -) 1,000 mg IVPB Q6H PRN PRN Reason: PAIN LEVEL 4 - 6 Last Admin: 03/14/18 15:17 Dose: 1,000 mg Clonazepam (Klonopin -) 0.25 mg PO DAILY PRN PRN Reason: ANXIETY Clonazepam (Klonopin -) 0.5 mg PO HS [facility] Last Admin: 03/16/18 22:47 Dose: 0.5 mg Enoxaparin Sodium (Lovenox -) 40 mg SQ DAILY [facility] Last Admin: 03/17/18 09:39 Dose: 40 mg Levofloxacin (Levaquin 750 Mg Premixed Ivpb -) 750 mg in 150 mls @ 100 mls/hr IVPB DAILY@1800 [facility]; Protocol Last Admin: 03/16/18 19:03 Dose: 100 mls/hr Metronidazole (Flagyl 500mg Premixed Ivpb -) 500 mg in 100 mls @ 100 mls/hr IVPB Q8H-IV [facility] Last Admin: 03/17/18 09:40 Dose: 100 mls/hr Ibuprofen (Caldolor Injection -) 800 mg IVPB Q8H PRN PRN Reason: PAIN LEVEL 7 - 10 Last Admin: 03/17/18 02:53 Dose: 800 mg Lactobacillus Acidophilus (Bacid -) 1 tab PO DAILY [facility] Last Admin: 03/17/18 09:39 Dose: 1 tab Nystatin (Nystatin Oral Suspension -) 500,000 units PO Q6HPO [facility] Last Admin: 03/17/18 11:36 Dose: 500,000 units Paroxetine HCl (Paxil -) 20 mg PO TID@0900,1300,1700 [facility] Last Admin: 03/17/18 09:39 Dose: 20 mg Trazodone HCl (Desyrel -) 50 mg PO HS [facility] Last Admin: 03/16/18 22:46 Dose: 50 mg Valacyclovir HCl (Valtrex -) 500 mg PO BID [facility] Last Admin: 03/17/18 09:39 Dose: 500 mg - Objective Vital Signs: Vital Signs Temperature 97.9 F 03/17/18 10:00 Pulse Rate 55 L 03/17/18 10:00 Respiratory Rate 18 03/17/18 10:00 Blood Pressure 123/68 03/17/18 10:00 O2 Sat by Pulse Oximetry (%) 97 03/16/18 21:00 Constitutional: Yes: No Distress, Calm Cardiovascular: Yes: Regular Rate and Rhythm Respiratory: Yes: Regular, CTA Bilaterally Gastrointestinal: Yes: Normal Bowel Sounds, Soft Musculoskeletal: Yes: WNL Extremities: Yes: WNL Neurological: Yes: Alert, Oriented Psychiatric: Yes: Alert, Oriented Labs: CBC, BMP 03/17/18 06:30 03/17/18 06:30 INR, PTT INR 1.24 (0.82-1.09) H 03/13/18 17:46 Assessment/Plan Problem List - Problems (1) Ruptured appendicitis Code(s): K35.2 - ACUTE APPENDICITIS WITH GENERALIZED PERITONITIS (2) Morbid obesity with BMI of 40.0-44.9, adult Code(s): E66.01 - MORBID (SEVERE) OBESITY DUE TO EXCESS CALORIES; Z68.41 - BODY MASS INDEX (BMI) 40.0-44.9, ADULT (3) S/P gastric bypass Code(s): Z98.84 - BARIATRIC SURGERY STATUS (4) Basilar migraine Code(s): G43.109 - MIGRAINE WITH AURA, NOT INTRACTABLE, W/O STATUS MIGRAINOSUS (5) Anxiety and depression Assessment/Plan: continue home meds Code(s): F41.9 - ANXIETY DISORDER, UNSPECIFIED; F32.9 - MAJOR DEPRESSIVE DISORDER, SINGLE EPISODE, UNSPECIFIED Assessment/Plan 61 y.o. female with PMH of obesity s/p gastric bypass, s/p cholecystecomy, s/p hysterectomy, migraine headaches, depression and recent tooth extraction presenting with Rt lower abdominal pain x 5 days Acute Appendicitis/rupture continue current mgmt await for ct scan report once we have that will consider the further plan patient doing well wbc still on the lower side
[2018-03-17] MEDS ORDERED: AMINO ACIDS/PROTEIN HYDROLYS 30 ML LIQUID.PKT PO ONE (14:45)
[2018-03-17] MEDS ORDERED: ACETAMINOPHEN 325 MG TABLET (FP) PO PRN (18:59)
[2018-03-17] MEDS: traZODone HCL 50 MG TABLET (FP) PO SCH (22:12)
[2018-03-17] MEDS: clonazePAM 0.5 MG TABLET PO SCH (22:12)
[2018-03-18] MEDS: NYSTATIN 500,000 UNITS/5 ML SUSPENSION PO SCH ×4 (00:16→17:33)
[2018-03-18 07:31] LABS: BASO % 0.5 % (0-2.0); EOS % 4.8 % (0-4.5); HEMATOCRIT 35.4 % (32.4-45.2); LYMPH % 25.5 % (8-40); MCH 29.1 pg (25.7-33.7); MCHC 33.8 g/dl (32.0-36.0); MEAN CELL VOLUME 86.2 fl (80-96); MONO % 9.5 % (3.8-10.2); NEUT % 59.7 % (42.8-82.8); PLATELET COUNT 121 K/MM3 (134-434); RDW 13.1 % (11.6-15.6); WHITE BLOOD COUNT 2.8 K/mm3 (4.0-10.0)
[2018-03-18] MEDS: valACYclovir HCL 500 MG TABLET (FP) PO SCH (09:17)
[2018-03-18] MEDS: PARoxetine HCL 10 MG TABLET (FP) PO SCH ×3 (09:17→17:33)
[2018-03-18] MEDS: LACTOBACILLUS ACIDOPHILUS 1 TABLET PO SCH (09:17)
[2018-03-18] MEDS: ENOXAPARIN NA (PORCINE) 40 MG/0.4 ML DISP.SYRIN SQ SCH (09:19)
[2018-03-18 09:37] LABS: CHLORIDE 109 mmol/L (98-107); POTASSIUM 3.8 mmol/L (3.5-5.1); SODIUM 148 mmol/L (136-145)
[2018-03-18 10:04] LABS: ANION GAP 12 (8-16); BLOOD UREA NITROGEN 5 mg/dL (7-18); CALCIUM 8.4 mg/dL (8.5-10.1); CO2 27 mmol/L (21-32); CREATININE 0.6 mg/dL (0.55-1.02); GLUCOSE,RANDOM 85 mg/dL (74-106)
--- NOTE | 2018-03-18 11:30 | PN ---
Progress Note, Physician Chief Complaint: RLQ pain History of Present Illness: Pt seen and examined in bed. Ambulating in halls. No more RLQ pain, no headaches. Voiding and with bowel function, loose stools. No fevers. Overall feeling better, tolerating diet. - Current Medication List Current Medications: Active Medications Acetaminophen (Tylenol -) 650 mg PO Q6H PRN PRN Reason: PAIN LEVEL 6-10 Clonazepam (Klonopin -) 0.25 mg PO DAILY PRN PRN Reason: ANXIETY Clonazepam (Klonopin -) 0.5 mg PO HS [facility] Last Admin: 03/17/18 22:12 Dose: 0.5 mg Enoxaparin Sodium (Lovenox -) 40 mg SQ DAILY [facility] Last Admin: 03/18/18 09:19 Dose: 40 mg Levofloxacin (Levaquin 750 Mg Premixed Ivpb -) 750 mg in 150 mls @ 100 mls/hr IVPB DAILY@1800 [facility]; Protocol Last Admin: 03/17/18 19:09 Dose: 100 mls/hr Metronidazole (Flagyl 500mg Premixed Ivpb -) 500 mg in 100 mls @ 100 mls/hr IVPB Q8H-IV [facility] Last Admin: 03/18/18 09:19 Dose: 100 mls/hr Lactobacillus Acidophilus (Bacid -) 1 tab PO DAILY [facility] Last Admin: 03/18/18 09:17 Dose: 1 tab Nystatin (Nystatin Oral Suspension -) 500,000 units PO Q6HPO [facility] Last Admin: 03/18/18 06:19 Dose: Not Given Paroxetine HCl (Paxil -) 20 mg PO TID@0900,1300,1700 [facility] Last Admin: 03/18/18 09:17 Dose: 20 mg Trazodone HCl (Desyrel -) 50 mg PO [facility] Last Admin: 03/17/18 22:12 Dose: 50 mg Valacyclovir HCl (Valtrex -) 500 mg PO BID [facility] Last Admin: 03/18/18 09:17 Dose: 500 mg - Objective Vital Signs: Vital Signs Temperature 98.6 F 03/18/18 09:43 Pulse Rate 65 03/18/18 09:43 Respiratory Rate 18 03/18/18 09:43 Blood Pressure 122/73 03/18/18 09:43 O2 Sat by Pulse Oximetry (%) 97 03/17/18 21:00 Constitutional: Yes: No Distress, Calm, Obese Eyes: Yes: Conjunctiva Clear, EOM Intact HENT: Yes: Atraumatic, Normocephalic Cardiovascular: Yes: Regular Rate and Rhythm, Murmur Respiratory: Yes: Regular, CTA Bilaterally Gastrointestinal: Yes: Normal Bowel Sounds, Soft, Abdomen, Obese. No: Tenderness, Tenderness, Epigastrium ...Rectal Exam: Yes: Deferred Musculoskeletal: No: Joint Stiffness, Joint Swelling Extremities: No: Cool, Cyanosis Edema: No Integumentary: Yes: Erythema (essentially faded/resolved right upper arm). No: Jaundice, Rash Neurological: Yes: Alert, Oriented Psychiatric: Yes: Alert (in better spirits), Oriented Labs: CBC, BMP 03/18/18 07:16 03/18/18 07:16 wbc remains low but stable Na, Cl up a bit - on diet, encourage hydration - ....Imaging Cat Scan: Image Reviewed (images personally reviewed, report still pending; inflammation of and surrounding appendix similar to previous, but fat slightly less hazy, mild improvement, no drainable collection, no free air) Problem List - Problems (1) Ruptured appendicitis Assessment/Plan: pain and tenderness resolved on antibiotics continue Levo/Flagyl per ID - anticipate transition to oral on d/c to complete 14d course pain meds prn (tylenol changed to po prn) encourage OOB/amb/IS trend labs, monitor wbc - per pt, was treated by stave grader for anemia in past , did have transfusion at one time prior to her bariatric surgery not sure if tested for HIV recently not sure if wbc also chronically low but will check her records has appt with PMD Kiesha Olivera for Thursday serial exams tolerating diet will await formal CT read, and recheck wbc in am complete 5d IV abx late tonight, likely d/c home in am on oral abx discussed with Dr. Winn pt encouraged to f/u with PMD, possibly hematology regarding leukopenia - may represent her norm? with elevation on presentation to 6? Code(s): K35.2 - ACUTE APPENDICITIS WITH GENERALIZED PERITONITIS (2) Morbid obesity with BMI of 40.0-44.9, adult Code(s): E66.01 - MORBID (SEVERE) OBESITY DUE TO EXCESS CALORIES; Z68.41 - BODY MASS INDEX (BMI) 40.0-44.9, ADULT (3) S/P gastric bypass Code(s): Z98.84 - BARIATRIC SURGERY STATUS (4) Basilar migraine Code(s): G43.109 - MIGRAINE WITH AURA, NOT INTRACTABLE, W/O STATUS MIGRAINOSUS (5) Anxiety and depression Assessment/Plan: continue home meds feeling better on diet Code(s): F41.9 - ANXIETY DISORDER, UNSPECIFIED; F32.9 - MAJOR DEPRESSIVE DISORDER, SINGLE EPISODE, UNSPECIFIED (6) Recurrent canker sores Assessment/Plan: on Valtrex Code(s): K12.0 - RECURRENT ORAL APHTHAE (7) Phlebitis following infusion Assessment/Plan: resolving steadily warm compresses prn erythema nearly gone, no intervention needed Code(s): T80.1XXA - VASCULAR COMP FOL INFUSN, TRANFS AND THERAPUTC INJECT, INIT Qualifiers: Encounter type: initial encounter Qualified Code(s): T80.1XXA - Vascular complications following infusion, transfusion and therapeutic injection, initial encounter
--- NOTE | 2018-03-18 13:33 | PN ---
Progress Note, Physician History of Present Illness: stable no complaints no abd pain - Current Medication List Current Medications: Active Medications Acetaminophen (Tylenol -) 650 mg PO Q6H PRN PRN Reason: PAIN LEVEL 6-10 Clonazepam (Klonopin -) 0.25 mg PO DAILY PRN PRN Reason: ANXIETY Clonazepam (Klonopin -) 0.5 mg PO [facility] Last Admin: 03/17/18 22:12 Dose: 0.5 mg Enoxaparin Sodium (Lovenox -) 40 mg SQ DAILY [facility] Last Admin: 03/18/18 09:19 Dose: 40 mg Levofloxacin (Levaquin 750 Mg Premixed Ivpb -) 750 mg in 150 mls @ 100 mls/hr IVPB DAILY@1800 [facility]; Protocol Last Admin: 03/17/18 19:09 Dose: 100 mls/hr Metronidazole (Flagyl 500mg Premixed Ivpb -) 500 mg in 100 mls @ 100 mls/hr IVPB Q8H-IV [facility] Last Admin: 03/18/18 09:19 Dose: 100 mls/hr Lactobacillus Acidophilus (Bacid -) 1 tab PO DAILY [facility] Last Admin: 03/18/18 09:17 Dose: 1 tab Nystatin (Nystatin Oral Suspension -) 500,000 units PO Q6HPO [facility] Last Admin: 03/18/18 11:50 Dose: 500,000 units Paroxetine HCl (Paxil -) 20 mg PO TID@0900,1300,1700 [facility] Last Admin: 03/18/18 12:49 Dose: 20 mg Trazodone HCl (Desyrel -) 50 mg PO [facility] Last Admin: 03/17/18 22:12 Dose: 50 mg Valacyclovir HCl (Valtrex -) 500 mg PO BID [facility] Last Admin: 03/18/18 09:17 Dose: 500 mg - Objective Vital Signs: Vital Signs Temperature 98.6 F 03/18/18 09:43 Pulse Rate 65 03/18/18 09:43 Respiratory Rate 18 03/18/18 09:43 Blood Pressure 122/73 03/18/18 09:43 O2 Sat by Pulse Oximetry (%) 97 03/17/18 21:00 Constitutional: Yes: No Distress, Calm, Obese Cardiovascular: Yes: Regular Rate and Rhythm Respiratory: Yes: Regular, CTA Bilaterally Gastrointestinal: Yes: Normal Bowel Sounds, Soft Musculoskeletal: Yes: WNL Extremities: Yes: WNL Neurological: Yes: Alert, Oriented Psychiatric: Yes: Alert, Oriented Labs: CBC, BMP 03/18/18 07:16 03/18/18 07:16 INR, PTT INR 1.24 (0.82-1.09) H 03/13/18 17:46 - ....Imaging Cat Scan: Report Reviewed, Image Reviewed Assessment/Plan Problem List - Problems (1) Ruptured appendicitis Code(s): K35.2 - ACUTE APPENDICITIS WITH GENERALIZED PERITONITIS (2) Morbid obesity with BMI of 40.0-44.9, adult Code(s): E66.01 - MORBID (SEVERE) OBESITY DUE TO EXCESS CALORIES; Z68.41 - BODY MASS INDEX (BMI) 40.0-44.9, ADULT (3) S/P gastric bypass Code(s): Z98.84 - BARIATRIC SURGERY STATUS (4) Basilar migraine Code(s): G43.109 - MIGRAINE WITH AURA, NOT INTRACTABLE, W/O STATUS MIGRAINOSUS (5) Anxiety and depression Assessment/Plan: continue home meds Code(s): F41.9 - ANXIETY DISORDER, UNSPECIFIED; F32.9 - MAJOR DEPRESSIVE DISORDER, SINGLE EPISODE, UNSPECIFIED Assessment/Plan 61 y.o. female with PMH of obesity s/p gastric bypass, s/p cholecystecomy, s/p hysterectomy, migraine headaches, depression and recent tooth extraction presenting with Rt lower abdominal pain x 5 days Acute Appendicitis/rupture continue current mgmt ct scan result noted continue iv abx for today can switch to oral abx tomorrow patient will need abx for 2 weeks also will need her appendix out some time later monitor wbc
[2018-03-18] MEDS: clonazePAM 0.5 MG TABLET PO SCH (22:59)
[2018-03-19] MEDS ORDERED: metroNIDAZOLE 250 MG TABLET PO ONE
[2018-03-19] MEDS: NYSTATIN 500,000 UNITS/5 ML SUSPENSION PO SCH ×2 (00:02→06:24)
[2018-03-19] MEDS: valACYclovir HCL 500 MG TABLET (FP) PO SCH ×2 (00:02→10:46)
[2018-03-19] MEDS: traZODone HCL 50 MG TABLET (FP) PO SCH (00:02)
[2018-03-19] MEDS ORDERED: levoFLOXacin 750 MG TABLET PO SCH (06:00)
[2018-03-19] MEDS ORDERED: metroNIDAZOLE 250 MG TABLET PO SCH (06:00)
[2018-03-19 07:32] LABS: BASO % 1.2 % (0-2.0); HEMATOCRIT 35.3 % (32.4-45.2); HEMOGLOBIN 11.9 GM/dL (10.7-15.3); LYMPH % 22.9 % (8-40); MCH 29.2 pg (25.7-33.7); MCHC 33.8 g/dl (32.0-36.0); MEAN CELL VOLUME 86.4 fl (80-96); MEAN PLT VOLUME 9.5 fl (7.5-11.1); MONO % 8.3 % (3.8-10.2); NEUT % 63.6 % (42.8-82.8); PLATELET COUNT 120 K/MM3 (134-434); RBC 4.08 M/mm3 (3.60-5.2); WHITE BLOOD COUNT 3.4 K/mm3 (4.0-10.0)
[2018-03-19] MEDS ORDERED: levoFLOXacin 750 MG TABLET PO ONE (09:03)
[2018-03-19] MEDS: PARoxetine HCL 10 MG TABLET (FP) PO SCH (09:22)
--- NOTE | 2018-03-19 09:51 | DS ---
Physical Examination Vital Signs: Vital Signs Temperature 98.2 F 03/19/18 06:00 Pulse Rate 71 03/19/18 06:00 Respiratory Rate 18 03/19/18 06:00 Blood Pressure 127/85 03/19/18 06:00 O2 Sat by Pulse Oximetry (%) 97 03/18/18 21:00 Findings/Remarks: Pt seen and examined in her room. Was extremely anxious last night and almost decided to leave hospital, but was able to stay the night after all. Still feeling no pain, no nausea, tolerating diet, having loose BMs (oral contrast yesterday). Overall feeling calmer and better this morning. Lost IV last night and has started PO antibiotics, which she will take to complete course at home. C/O yeast infection, but canker sores in mouth are getting better. She indicates she plans to seek interval appendectomy at bariatric center. CT report shows similar findings to admission CT, still no drainable abscess, no free air. Pt may obtain CD of her studies directly from radiology. Constitutional: Yes: No Distress, Calm, Obese Eyes: Yes: Conjunctiva Clear, EOM Intact HENT: Yes: Atraumatic, Normocephalic Cardiovascular: Yes: Regular Rate and Rhythm, Murmur Respiratory: Yes: Regular, CTA Bilaterally Gastrointestinal: Yes: Normal Bowel Sounds, Soft, Abdomen, Obese. No: Tenderness ...Rectal Exam: Yes: Deferred Musculoskeletal: No: Joint Stiffness, Joint Swelling Extremities: No: Cool, Cyanosis, Erythema Edema: No Integumentary: Yes: Bruising (scattered ecchymoses resolving on arms). No: Erythema, Jaundice, Rash Neurological: Yes: Alert, Oriented Psychiatric: Yes: Alert, Oriented. No: Agitated Labs: CBC, BMP 03/19/18 07:00 pt has old records which show her baseline WBC is just over 4 since 2016 admission wbc of 6 was likely somewhat elevated for her back to baseline, and stable Discharge Summary Reason For Visit: RUPTURED APPENDICITIS Current Active Problems Ruptured appendicitis (Acute) Anxiety and depression (Acute) Basilar migraine (Acute) Morbid obesity with BMI of 40.0-44.9, adult (Acute) Phlebitis following infusion (Acute) Recurrent canker sores (Acute) S/P gastric bypass (Acute) Procedures: Principal: none except CT scans Hospital Course: 62yo morbidly obese F with anxiety and depression, s/p hyst/BSO, s/p cholecystectomy complicated by ductal injury and s/p lap gastric bypass 2008 ( 80lbs wt loss and resolution of HTN, DM), presented with 4-5 days of RLQ pain and was found on CT to have perforated appendicitis without drainable abscess or free air. Nonoperative treatment was undertaken with bowel rest and IV antibiotics (Levofloxacin and Flagyl), with resolution of pain and tenderness over the next several days. Her wbc, initially 6, decreased to just under 3, but she was able to provide baseline data showing counts in the 4's since 2015. When tenderness resolved, she was restarted on liquids and advanced to bariatric diet with toleration. Pain was managed with Tylenol mainly, which she only needed for a few days. She did develop some oral canker sores and symptoms of yeast infection and started on Valtrex, which she requested to continue on discharge, and Diflucan single dose was given prior to discharge. She had a mild IV infiltration/phlebitis in her right arm just above antecubital fossa, which improved with time and warm compresses. Home meds were continued to manage her anxiety and depression. CT was repeated yesterday to ensure no development of drainable abscess, which there is not, though inflammatory changes are similar to her initial CT. Today, she is clinically much improved and ready for discharge home on oral antibiotics to complete a 14-day course. She will f/u with her PMD next Thursday, and will pursue interval appendectomy with a surgeon of her choice at her bariatric center in about 6 weeks, though she is welcome to follow up with Dr. Sarabia if desired. Condition: Improved - Instructions Diet, Activity, Other Instructions: Posthospital instructions: You were hospitalized for perforated appendicitis and treated with IV antibiotics and bowel rest by Dr. Garett Sarabia of [facility]. There was no drainable abscess. You still have inflammation of the appendix, but you have improved enough to be able to complete your antibiotic course with pills at home, and have tolerated returning to an oral diet. Activity: You may resume your usual activities. Eat lightly at first, but advance to your usual/bariatric diet as tolerated. Medications: For pain, you may use and alternate Tylenol (acetaminophen) and/or ibuprofen every 6 hours each as needed; this means that you can take one OR the other at 3-hour intervals. Do not take more than 4000mg of acetaminophen in a day. You have been prescribed antibiotics to complete a total 2-week course. Take all medications for the time recorder as prescribed or indicated on the labeling. Follow-up: You may call Dr. Sarabia's office at [phone] to make a followup appointment to discuss interval appendectomy, or you may see another surgeon. Dr. Sarabia's clinic is held Wednesdays in the [facility] on the first floor of [facility]. If you choose to see another surgeon, you should be evaluated for surgery to remove your appendix within about 6 weeks. Call the office if you have: * increasing pain not responsive to pain medication * fever of 101F or higher * vomiting * diarrhea that smells very foul and does not resolve in a few days * inability to urinate Also, see your primary medical doctor within 1-2 weeks. Referrals: Kiesha Olivera MD [Non Staff, Medical] - Disposition: HOME - Home Medications Comprehensive Discharge Medication List: Ambulatory Orders Clonazepam [Klonopin] 0.5 mg PO HS 05/09/14 Paroxetine HCl [Paxil] 20 mg PO TID 05/09/14 Trazodone HCl 50 mg PO HS 03/13/18 Acetaminophen [Tylenol .Regular Strength -] 650 mg PO Q6H PRN tablet 03/19/18 Fluconazole [Diflucan] 150 mg PO ONCE PRN #2 tablet 03/19/18 Lactobacillus Acidophilus [Bacid -] 1 tab PO DAILY #30 tab 03/19/18 Valacyclovir HCl [Valtrex -] 500 mg PO BID #60 tablet 03/19/18 levoFLOXacin [Levaquin] 750 mg PO DAILY #8 tab 03/19/18 metroNIDAZOLE [Flagyl -] 500 mg PO TID #26 tablet 03/19/18
[2018-03-19] MEDS ORDERED: FLUCONAZOLE 50 MG TABLET PO STA (10:03)
--- NOTE | 2018-03-19 10:38 | PN ---
Progress Note, Physician History of Present Illness: stable no issues wbc has increased - Current Medication List Current Medications: Active Medications Acetaminophen (Tylenol -) 650 mg PO Q6H PRN PRN Reason: PAIN LEVEL 6-10 Clonazepam (Klonopin -) 0.25 mg PO DAILY PRN PRN Reason: ANXIETY Last Admin: 03/18/18 18:12 Dose: 0.25 mg Clonazepam (Klonopin -) 0.5 mg PO [facility] Last Admin: 03/18/18 22:59 Dose: 0.5 mg Enoxaparin Sodium (Lovenox -) 40 mg SQ DAILY [facility] Last Admin: 03/18/18 09:19 Dose: 40 mg Lactobacillus Acidophilus (Bacid -) 1 tab PO DAILY [facility] Last Admin: 03/18/18 09:17 Dose: 1 tab Metronidazole (Flagyl -) 500 mg PO TID [facility] Last Admin: 03/19/18 06:23 Dose: 500 mg Nystatin (Nystatin Oral Suspension -) 500,000 units PO Q6HPO [facility] Last Admin: 03/19/18 06:24 Dose: Not Given Paroxetine HCl (Paxil -) 20 mg PO TID@0900,1300,1700 [facility] Last Admin: 03/19/18 09:22 Dose: 20 mg Trazodone HCl (Desyrel -) 50 mg PO [facility] Last Admin: 03/19/18 00:02 Dose: 50 mg Valacyclovir HCl (Valtrex -) 500 mg PO BID [facility] Last Admin: 03/19/18 00:02 Dose: 500 mg - Objective Vital Signs: Vital Signs Temperature 98.2 F 03/19/18 06:00 Pulse Rate 71 03/19/18 06:00 Respiratory Rate 18 03/19/18 06:00 Blood Pressure 127/85 03/19/18 06:00 O2 Sat by Pulse Oximetry (%) 97 03/18/18 21:00 Constitutional: Yes: No Distress, Calm, Obese Cardiovascular: Yes: Regular Rate and Rhythm Respiratory: Yes: Regular, CTA Bilaterally Gastrointestinal: Yes: Normal Bowel Sounds, Soft Musculoskeletal: Yes: WNL Extremities: Yes: WNL Neurological: Yes: Alert, Oriented Psychiatric: Yes: Alert, Oriented Labs: CBC, BMP 03/19/18 07:00 03/18/18 07:16 INR, PTT INR 1.24 (0.82-1.09) H 03/13/18 17:46 Assessment/Plan Problem List - Problems (1) Ruptured appendicitis Code(s): K35.2 - ACUTE APPENDICITIS WITH GENERALIZED PERITONITIS (2) Morbid obesity with BMI of 40.0-44.9, adult Code(s): E66.01 - MORBID (SEVERE) OBESITY DUE TO EXCESS CALORIES; Z68.41 - BODY MASS INDEX (BMI) 40.0-44.9, ADULT (3) S/P gastric bypass Code(s): Z98.84 - BARIATRIC SURGERY STATUS (4) Basilar migraine Code(s): G43.109 - MIGRAINE WITH AURA, NOT INTRACTABLE, W/O STATUS MIGRAINOSUS (5) Anxiety and depression Assessment/Plan: continue home meds Code(s): F41.9 - ANXIETY DISORDER, UNSPECIFIED; F32.9 - MAJOR DEPRESSIVE DISORDER, SINGLE EPISODE, UNSPECIFIED Assessment/Plan 61 y.o. female with PMH of obesity s/p gastric bypass, s/p cholecystecomy, s/p hysterectomy, migraine headaches, depression and recent tooth extraction presenting with Rt lower abdominal pain x 5 days Acute Appendicitis/rupture continue current mgmt abx for 2 weeks total follow wbc rest as per the team wbc improved
[2018-03-19] MEDS: ENOXAPARIN NA (PORCINE) 40 MG/0.4 ML DISP.SYRIN SQ SCH (10:46)
[2018-03-19] MEDS: LACTOBACILLUS ACIDOPHILUS 1 TABLET PO SCH (10:46)
[2018-03-19 10:48] VITALS: BP 132/88; PULSE 65; TEMP 97.7
== END 2018-03-19 11:05 | disposition home or self-care (01) | DRG 372 ==
LOC: FER 11:29 → J7W 17:34
PROVIDERS: ADMIT Surgery; ATTEND Surgery
DX: K35.2 Acute appendicitis with generalized peritonitis (principal); Z68.41 Body mass index [BMI] 40.0-44.9, adult; T80.1XXA Vascular complications following infusion, transfusion and therapeutic injection, initial encounter; G43.109 Migraine with aura, not intractable, without status migrainosus; F41.8 Other specified anxiety disorders; E66.01 Morbid (severe) obesity due to excess calories; F40.00 Agoraphobia, unspecified; K12.0 Recurrent oral aphthae; Y84.9 Medical procedure, unspecified as the cause of abnormal reaction of the patient, or of later complication, without mention of misadventure at the time of the procedure; Z98.84 Bariatric surgery status
CPT/HCPCS: 36415; 74177-TC; 80048; 80053; 81003; 81015; 83735; 85025; 85610; 85730; 86850; 86900; 86901; 93005; 99283-25; J0131

== ENCOUNTER 2019-06-14 18:15 | Emergency (ER) | payer BC, OTHER ==
[2019-06-14 19:03] VITALS: BP 119/79; PULSE 79; TEMP 98; BMI 43.0
--- NOTE | 2019-06-14 19:50 | PDOC ---
Documentation entered by Bertha Ponce SCRIBE, acting as scribe for Jhonny López MD. Jhonny López MD: This documentation has been prepared by the Kris gonzalez Aiswarya, SCRIBE, under my direction and personally reviewed by me in its entirety. I confirm that the documentation accurately reflects all work, treatment, procedures, and medical decision making performed by me. History of Present Illness - General Chief Complaint: Injury Stated Complaint: FALL Time Seen by Provider: 06/14/19 19:08 History Source: Patient Exam Limitations: No Limitations - History of Present Illness Initial Comments: 06/14/19 20:38 Assessment and plan: This is a 63-year-old female who fell when she missed the last step going down some stairs. Patient had the wind knocked out of her and some relief episode of shortness of breath which is what prompted her to come in. Patient otherwise denied any neurological complaints. Patient was complaining of some skeletal or muscular type discomfort but there was no bony discomfort on my exam. Patient took some ibuprofen prior to coming in and otherwise did not want anything for pain or discomfort. Patient discharged and will follow-up with her primary care doctor as needed. 06/14/19 20:58 The patient is a 64 year old female, with a significant PMH of gastric bypass 2008, who presents to the emergency department for evaluation of a fall that occurred today. Patient states she was walking down the stairs when she missed a step and fell to her right side, twisting her back. The patient endorses pain to the sternoclavicular, bilateral neck pain and left lower back pain. She also notes contusion to the right latter-day area and right forearm. Patient reports hitting her head but did not lose consciousness. Denies chest pain, shortness of breath, headache and dizziness.Denies numbness, tingling, or vision changes. Denies fever, chills, nausea, vomit, diarrhea and constipation. Pt has history of a clavicle dislocation in the past which chronic prominance of the right SC junction. PAST MEDICAL HISTORY: no significant history PAST SURGICAL HISTORY: abdominal surgery , cholecystectomy, rotator cuff surgery left shoulder FAMILY HISTORY: no pertinent history SOCIAL HISTORY: Pt lives with family and is employed. MEDICATIONS: reviewed ALLERGIES: As per nursing notes Adult ROS General: No fevers or chills, no weakness, no weight loss HEENT: No change in vision. No sore throat,. No ear pain CardioVascular: No chest pain or shortness of breath Respiratory:No cough, or wheezing. Gastrointestinal: no nausea, vomiting, diarrhea or constipation, No rectal bleeding Genitourinary: No dysuria, hematuria, or frequency Musculoskeletal: +neck and back pain. Neurologic: No headache, vertigo, dizziness or loss of consciousness Psychiatric: nor depression Skin:+contusion on the right latter-day and right arm. Endocrine: no increased thirst or abnormal weight change Allergic: no skin or latex allergy All other systems reviewed and normal Adult Exam: General: Well-nourished well-developed individual, no acute distress HEENT: Throat: Normal, tonsils normal, no erythema or exudate Neck: Supple, no meningeal signs, no lymphadenopathy Eyes::Pupils equal reactive and round, extraocular motion intact Chest: Nontender to palpation Cardiac: S1-S2 normal, regular rate and rhythm, no murmurs rubs or gallops Respiratory: Lungs clear to auscultation bilateral Abdomen: Soft, nondistended, normal bowel sounds, nontender to palpation diffusely Extremities:+tenderness on palpation on the sternoclavicular junction prominence of the left clavicle. Muscular tenderness on palpation of the bilateral neck and left lower back. Skin: +contusion on the right upper arm. No bony tenderness. + contusion the right latter-day. No rashes Neuro: Alert and oriented x3, nonfocal exam, grossly intact, normal gait Psych: Normal mood and affect 06/14/19 21:00 Past History - Past Medical History Allergies/Adverse Reactions: Allergies Allergy/AdvReac Type Severity Reaction Status Date / Time prochlorperazine edisylate Allergy Intermediate DIZZINESS Verified 03/13/18 11: 30 [From Compazine] prochlorperazine maleate Allergy Intermediate DIZZINESS Verified 03/13/18 11:30 [From Compazine] amoxicillin Allergy Verified 03/13/18 11:30 DUST Allergy Unknown Uncoded 03/13/18 11:30 HAYFEVER Allergy Unknown Uncoded 03/13/18 11:30 HAZELNUT Allergy Unknown Uncoded 03/13/18 11:30 Home Medications: Ambulatory Orders Clonazepam [Klonopin] 1 mg PO PRN PRN 05/09/14 Paroxetine HCl [Paxil] 20 mg PO TID 05/09/14 traZODone HCL [Trazodone HCl] 50 mg PO HS 03/13/18 Fluconazole [Diflucan] 150 mg PO PRN PRN 06/14/19 Anemia: No Asthma: No Cancer: No Cardiac Disorders: No CVA: No COPD: No CHF: No DVT: No Dementia: No Diabetes: No GI Disorders: Yes (GASTIC BYPASS 2008) Disorders: No HTN: No Hypercholesterolemia: No Liver Disease: No Seizures: No Thyroid Disease: No - Surgical History Abdominal Surgery: Yes Appendectomy: No Cardiac Surgery: No Cholecystectomy: Yes (1990) Lung Surgery: No Neurologic Surgery: No Orthopedic Surgery: Yes (ROTATOR CUFF SX LEFT SHOULDER) - Psycho Social/Smoking Cessation Hx Smoking History: Never smoked Have you smoked in the past 12 months: No Information on smoking cessation initiated: No Hx Alcohol Use: No Drug/Substance Use Hx: No Substance Use Type: None *Physical Exam - Vital Signs Last Vital Signs Temp Pulse Resp BP Pulse Ox 98 F 79 20 119/79 98 06/14/19 18:15 06/14/19 18:15 06/14/19 18:15 06/14/19 18:15 06/14/19 18:15 ED Treatment Course - RADIOLOGY Radiology Studies Ordered: Category Date Time Status CLAVICLE-RIGHT SIDE [RAD] Stat Radiology 06/14/19 19:33 Ordered Discharge - Discharge Information Problems reviewed: Yes Clinical Impression/Diagnosis: Arm contusion, Contusion of scalp Fall Qualifiers: Encounter type: initial encounter Qualified Code(s): W19.XXXA - Unspecified fall, initial encounter Low back strain Qualifiers: Encounter type: initial encounter Qualified Code(s): S39.012A - Strain of muscle, fascia and tendon of lower back, initial encounter Condition: Stable Disposition: HOME - Follow up/Referral - Patient Discharge Instructions Additional Instructions: Take an ibuprofen or anti-inflammatory for the next 3 to 4 days. Return to the emergency department immediately with ANY new, persistent or worsening symptoms. Continue any medications as previously prescribed by your physician. You should follow up with your primary doctor as soon as possible regarding today's emergency department visit. . Please make sure your doctor reviews the results of your emergency evaluation. Thank you for coming to the Emergency Department today for your care. It was a pleasure to see you today. Please note that your evaluation is INCOMPLETE until you follow-up with your doctor. - Post Discharge Activity
== END 2019-06-14 19:56 | disposition home or self-care (01) ==
LOC: FER 18:15
DX: S40.022A Contusion of left upper arm, initial encounter (principal); S00.03XA Contusion of scalp, initial encounter; W10.9XXA Fall (on) (from) unspecified stairs and steps, initial encounter; Y93.9 Activity, unspecified; Y92.9 Unspecified place or not applicable; Z98.84 Bariatric surgery status
CPT/HCPCS: 99281-25

== ENCOUNTER 2019-09-28 21:30 | Emergency (ER) | payer OTHER ==
[2019-09-28 21:43] VITALS: BP 144/68; PULSE 72; TEMP 97.8; BMI 43.9
--- NOTE | 2019-09-28 22:45 | PDOC ---
History of Present Illness - General Chief Complaint: Psychiatric Stated Complaint: ANXIOUS Time Seen by Provider: 09/28/19 21:34 Past History - Past Medical History Allergies/Adverse Reactions: Allergies Allergy/AdvReac Type Severity Reaction Status Date / Time prochlorperazine edisylate Allergy Intermediate DIZZINESS Verified 03/13/18 11: 30 [From Compazine] prochlorperazine maleate Allergy Intermediate DIZZINESS Verified 03/13/18 11:30 [From Compazine] amoxicillin Allergy Verified 03/13/18 11:30 DUST Allergy Unknown Uncoded 03/13/18 11:30 HAYFEVER Allergy Unknown Uncoded 03/13/18 11:30 HAZELNUT Allergy Unknown Uncoded 03/13/18 11:30 Home Medications: Ambulatory Orders Clonazepam [Klonopin] 1 mg PO PRN PRN 05/09/14 Paroxetine HCl [Paxil] 20 mg PO TID 05/09/14 traZODone HCL [Trazodone HCl] 50 mg PO HS 03/13/18 Fluconazole [Diflucan] 150 mg PO PRN PRN 06/14/19 Anemia: No Asthma: No Cancer: No Cardiac Disorders: No CVA: No COPD: No CHF: No DVT: No Dementia: No Diabetes: No GI Disorders: Yes (GASTIC BYPASS 2008) Disorders: No HTN: No Hypercholesterolemia: No Liver Disease: No Psychiatric Problems: Yes (DEPRESSION/ANXIETY) Seizures: No Thyroid Disease: No - Surgical History Abdominal Surgery: Yes Appendectomy: No Cardiac Surgery: No Cholecystectomy: Yes (1990) Lung Surgery: No Neurologic Surgery: No Orthopedic Surgery: Yes (ROTATOR CUFF SX LEFT SHOULDER) - Psycho Social/Smoking Cessation Hx Smoking History: Unknown if ever smoked Have you smoked in the past 12 months: No Number of Cigarettes Smoked Daily: 0 Information on smoking cessation initiated: No Hx Alcohol Use: No Drug/Substance Use Hx: No Substance Use Type: None *Physical Exam - Vital Signs Last Vital Signs Temp Pulse Resp BP Pulse Ox 97.8 F 72 14 144/68 98 09/28/19 21:34 09/28/19 21:34 09/28/19 21:34 09/28/19 21:34 09/28/19 21:34 Discharge - Discharge Information Condition: Good - Follow up/Referral - Patient Discharge Instructions - Post Discharge Activity
[2019-09-28 23:34] LABS: BASO % 0.9 % (0-2.0); EOS % 1.7 % (0-4.5); HEMATOCRIT 36.6 % (32.4-45.2); HEMOGLOBIN 11.9 GM/dl (10.7-15.3); LYMPH % 35.9 % (8-40); MCH 27.2 pg (25.7-33.7); MCHC 32.5 g/dl (32.0-36.0); MEAN CELL VOLUME 83.6 fl (80-96); MEAN PLT VOLUME 9.8 fl (7.5-11.1); MONO % 7.4 % (3.8-10.2); NEUT % 54.1 % (42.8-82.8); PLATELET COUNT 154 K/MM3 (134-434); RBC 4.37 M/mm3 (3.60-5.2); WHITE BLOOD COUNT 4.9 K/mm3 (4.0-10.8)
[2019-09-28 23:42] LABS: ALBUMIN 4.1 g/dl (3.4-5.0); BILIRUBIN,TOTAL 0.6 mg/dl (0.2-1); CALCIUM 8.2 mg/dl (8.5-10); CREATININE 0.6 mg/dl (0.55-1.3); POTASSIUM 3.5 mmol/L (3.5-5.1); TOT PROT 6.7 g/dl (6.4-8.2)
--- NOTE | 2019-09-29 03:45 | PDOC ---
Documentation entered by Steven Lopez SCRIBE, acting as scribe for Nyla Damico MD. Nyla Damico MD: This documentation has been prepared by the John gonzalez Nirvannie, SCRIBE, under my direction and personally reviewed by me in its entirety. I confirm that the documentation accurately reflects all work, treatment, procedures, and medical decision making performed by me. History of Present Illness - General Chief Complaint: Psychiatric Stated Complaint: ANXIOUS Time Seen by Provider: 09/28/19 21:34 History Source: Patient Exam Limitations: No Limitations - History of Present Illness Initial Comments: 09/28/19 22:59 The patient is a 64 year old female, with a significant past medical history of , migraines, anxiety, depression (homebound), recurrent thrush, and arthritis who presents to the emergency department with 1 week waxing and waning right- sided jaw pain and increased generalized malaise with new onset transient left arm numbness. As per patient, she has been experiencing associated generalized malaise over the course of the past week and saw her therapist today. She notes upon going into bed this afternoon at approximately 7pm she experienced an episode of transient left arm numbness which has since resolved. Patient notes she began to feel increasingly nervous and was worried she was having a heart attack, prompting her arrival to the ED. She denies recent chest pain or shortness of breath. She denies any lower extremity edema. She denies recent fevers, chills, headache or dizziness. She denies recent nausea, vomit, diarrhea or constipation. She denies recent dysuria, frequency, urgency or hematuria. Allergies: Compazine, Amoxicillin, Dust, Hazelnut. Past surgical history: Laparoscopic gastric bypass (, s/p DM and HTN), Cholecystectomy (complicated by ductal injury and repeat surgery), Hysterectomy , Bilateral Oophorectomy, Left rotator cuff surgery Social history: Nonsmoker. Denies EtOH use and recreational drug use. Primary Care Physician: Dr. Kiesha Olivera Past History - Past Medical History Allergies/Adverse Reactions: Allergies Allergy/AdvReac Type Severity Reaction Status Date / Time prochlorperazine edisylate Allergy Intermediate DIZZINESS Verified 03/13/18 11: 30 [From Compazine] prochlorperazine maleate Allergy Intermediate DIZZINESS Verified 03/13/18 11:30 [From Compazine] amoxicillin Allergy Verified 03/13/18 11:30 DUST Allergy Unknown Uncoded 03/13/18 11:30 HAYFEVER Allergy Unknown Uncoded 03/13/18 11:30 HAZELNUT Allergy Unknown Uncoded 03/13/18 11:30 Home Medications: Ambulatory Orders Clonazepam [Klonopin] 1 mg PO PRN PRN 05/09/14 Paroxetine HCl [Paxil] 20 mg PO TID 05/09/14 traZODone HCL [Trazodone HCl] 50 mg PO HS 03/13/18 Fluconazole [Diflucan] 150 mg PO PRN PRN 06/14/19 Anemia: No Asthma: No Cancer: No Cardiac Disorders: No CVA: No COPD: No CHF: No DVT: No Dementia: No Diabetes: No GI Disorders: Yes (GASTIC BYPASS 2008) Disorders: No HTN: No Hypercholesterolemia: No Liver Disease: No Psychiatric Problems: Yes (DEPRESSION/ANXIETY) Seizures: No Thyroid Disease: No - Surgical History Abdominal Surgery: Yes Appendectomy: No Cardiac Surgery: No Cholecystectomy: Yes (1990) Lung Surgery: No Neurologic Surgery: No Orthopedic Surgery: Yes (ROTATOR CUFF SX LEFT SHOULDER) - Psycho Social/Smoking Cessation Hx Smoking History: Unknown if ever smoked Have you smoked in the past 12 months: No Number of Cigarettes Smoked Daily: 0 Information on smoking cessation initiated: No Hx Alcohol Use: No Drug/Substance Use Hx: No Substance Use Type: None Review of Systems - Review of Systems Able to Perform ROS?: Yes Comments:: 09/28/19 23:00 CONSTITUTIONAL: Absent: fever, chills, diaphoresis, generalized weakness, malaise, loss of appetite HEENT: Present: Jaw pain. Absent: rhinorrhea, nasal congestion, throat pain, throat swelling, difficulty swallowing, mouth swelling, ear pain, eye pain, visual Changes CARDIOVASCULAR: Absent: chest pain, syncope, palpitations, irregular heart rate, lightheadedness , peripheral edema RESPIRATORY: Absent: cough, shortness of breath, dyspnea with exertion, orthopnea, wheezing, stridor, hemoptysis GASTROINTESTINAL: Absent: abdominal pain, abdominal distension, nausea, vomiting, diarrhea, constipation, melena, hematochezia GENITOURINARY: Absent: dysuria, frequency, urgency, hesitancy, hematuria, flank pain, genital pain MUSCULOSKELETAL: Absent: myalgia, arthralgia, joint swelling SKIN: Absent: rash, itching, pallor HEMATOLOGIC/IMMUNOLOGIC: Absent: easy bleeding, easy bruising, lymphadenopathy, frequent infections ENDOCRINE: Absent: unexplained weight gain, unexplained weight loss, heat intolerance, cold intolerance NEUROLOGIC: Absent: headache, focal weakness or paresthesias, dizziness, unsteady gait, seizure, mental status changes, bladder or bowel incontinence PSYCHIATRIC: Present: anxiety, depression Absent:suicidal or homicidal ideation, hallucinations. All Other Systems: Reviewed and Negative *Physical Exam - Vital Signs Last Vital Signs Temp Pulse Resp BP Pulse Ox 97.8 F 72 14 144/68 98 09/28/19 21:34 09/28/19 21:34 09/28/19 21:34 09/28/19 21:34 09/28/19 21:34 - Physical Exam 09/28/19 23:03 GENERAL: The patient is awake, alert, and fully oriented, in no acute distress. HEAD:Normal with no signs of trauma. EYES: Pupils equal, round and reactive to light, extraocular movements intact, sclera anicteric, conjunctiva clear. ENT: + Mild tenderness without edema, ecchymosis, or deformity to the right mandibular angle and ramus. No visible thrush. EXTREMITIES: Normal range of motion, no edema. NEUROLOGICAL: Normal speech, normal gait. PSYCH: Normal mood, normal affect. SKIN: Warm, Dry, normal turgor, no rashes or lesions noted. ED Treatment Course - LABORATORY CBC & Chemistry Diagram: 09/28/19 23:20 09/28/19 23:20 Medical Decision Making - Medical Decision Making As noted above, this 64-year-old woman with a history of gastric bypass (2008) presents with recent symptoms of fatigue/malaise and 1 week history of intermittent right jaw pain. Patient has had history of chronic thrush and has recently completed antifungal course. She initially thought that her jaw pain was related to the thrush but symptoms continue intermittently even after antifungal treatment. She also has concern regarding transient left arm numbness earlier today (now completely resolved) and mild nausea. Exam as noted above with mild tenderness without edema or ecchymosis seen on the right mandibular angle and ramus. Oral exam appears normal; no other significant abnormalities on exam. She is concerned that the symptoms are consistent with an [place] or other acute cardiac condition. Although the patient had diabetes mellitus and hypertension prior to her gastric bypass, they resolved after her weight loss. She has borderline hyperlipidemia but has no smoking history and no as such, family history of early heart disease. As such, she does not have significant risk factors for coronary artery disease but since she is 64 and has mild nausea, EKG and lab evaluation will be performed. 12-lead electrocardiogram is performed and interpreted by me: Normal sinus rhythm at 61 bpm with incomplete right bundle branch block but no evidence of acute ST or T wave abnormalities and no evidence of acute cardiac arrhythmia. Intervals and axis are normal. Tracing is essentially unchanged from EKG dated 03/13/2018. Mandibular x-rays performed to evaluate for occult fracture or bony lesions: Preliminary interpretation by me: No evidence of fracture, dislocation or bone lesions. Laboratory evaluation including CBC, chemistry profile, troponin are essentially normal. Results discussed with the patient who was reassured that no acute abnormality found in work-up. She should follow-up with her oral surgeon if she continues to have jaw pain so that further evaluation, including Panorex x-ray can be performed. She should also follow-up with her general medical doctor and return if she has severe, persistent pain shortness of breath or fever. Discharge - Discharge Information Problems reviewed: Yes Clinical Impression/Diagnosis: Jaw pain Fatigue Qualifiers: Fatigue type: unspecified Qualified Code(s): R53.83 - Other fatigue Condition: Stable Disposition: HOME - Follow up/Referral - Patient Discharge Instructions Patient Printed Discharge Instructions: DI for Fatigue Additional Instructions: Follow-up with your oral surgeon if you have persistent jaw pain Arrange for follow-up with your general medical doctor within the next 5 to 7 days Return to ER if you have worsening pain, shortness of breath, or fever - Post Discharge Activity
--- NOTE | 2019-09-29 14:21 | EKG ---
Test Reason : Blood Pressure : / mmHG Vent. Rate : 061 BPM Atrial Rate : 061 BPM P-R Int : 186 ms QRS Dur : 096 ms QT Int : 458 ms P-R-T Axes : 036 -10 000 degrees QTc Int : 461 ms NORMAL SINUS RHYTHM INCOMPLETE RIGHT BUNDLE BRANCH BLOCK BORDERLINE ECG WHEN COMPARED WITH ECG OF 13-MAR-2018 18:59, NO SIGNIFICANT CHANGE WAS FOUND Confirmed by STACI PEDRAZA MD ([id number]) on 09/29/2019 2:21:04 PM Referred By: MD LOFTON Confirmed By:STACI PEDRAZA MD
== END 2019-09-29 00:08 | disposition home or self-care (01) ==
LOC: FER 21:30
DX: R68.84 Jaw pain (principal); R53.83 Other fatigue; Z88.8 Allergy status to other drugs, medicaments and biological substances; Z98.84 Bariatric surgery status
CPT/HCPCS: 36415; 70100-TC-FY; 80053; 82550; 84484; 85025; 93005; 99285-25